=== PATIENT | female | born 1990 | race Hispanic/Latino ===

== ENCOUNTER 2017-08-23 23:00 | Emergency (ER) | payer BC ==
[2017-08-23] MEDS ORDERED: Lidocaine Viscous Sol 2% 15 ml UD Cup ONE (23:18)
[2017-08-23] MEDS ORDERED: Mag-Al 1200 mg/1200 mg/30 ML UDCUP ONE (23:19)
[2017-08-23] MEDS ORDERED: Pantoprazole 40 MG VIAL ONE (23:19)
[2017-08-23 23:21] LABS: #Eosinphils 0.3 thou/uL (0.0-0.7); #Lymphocytes 1.6 thou/uL (1.20-3.40); #Monocytes 0.5 thou/uL (0.11-0.59); #Neutrophils 5.8 thou/uL (1.40-6.50); %Basophils 0.1 % (0.0-1.0); %Eosinophils 3.9 % (0.0-10.0); %Lymphocytes 19.3 % (21.0-51.0); %Monocytes 6.2 % (0.0-10.0); %Neutrophils 70.6 % (42.0-75.0); Mean Corpuscular HGB CONC 35.6 g/dL (32.0-36.0); Mean Corpuscular Hemoglobin 29.2 pg (27.0-31.0); Mean Corpuscular Volume 81.8 fl (81.0-99.0); Mean Platelet Volume 6.1 fL (7.4-10.4); Platelet Count 269 thou/uL (130-400); RBC Distribution Width 15.3 % (11.5-14.5); Red Blood Cell (RBC) Count 4.46 mill/uL (4.20-5.40); White Blood Cell (WBC) Count 8.2 thou/uL (4.8-10.8)
[2017-08-23 23:28] LABS: Bilirubin Negative (Negative); Blood, Urine Negative (Negative); Clarity CLOUDY (Clear); Glucose, Urine (Dipstick) Negative (Negative); Leukocyte Moderate (Negative); Nitrite Negative (Negative); Protein, Urine (Dipstick) Negative (Neg-Trace); Specific Gravity, Urine 1.012 (1.002-1.036); Urobilinogen 0.2 mg/dL (0.2-1.0); pH, Urine 5.5 (5.0-9.0)
[2017-08-23 23:30] LABS: Bacteria/HPF 1+ HPF (None Seen); Hyaline Casts/LPF 0-3 HYALINE CAST LPF (0-3 Hyaline); Pathc Cast-AUWi Flag 0.72 (0-2.49); RBC/HPF 0-3 HPF (0-3)
[2017-08-23 23:44] LABS: ALT (SGPT) 16 U/L (8-55); AST (SGOT) 17 U/L (5-34); Albumin 4.1 g/dL (3.5-5.0); Alkaline Phosphatase 86 U/L (40-150); Anion Gap 13 mmol/L (10-20); BUN (Urea Nitrogen) 18 mg/dL (7.0-18.7); Bilirubin, Total 0.3 mg/dL (0.2-1.2); Calc. Creatinine Clearance 0 mL/min (70-130); Calcium 9.4 mg/dL (7.8-10.44); Carbon Dioxide 23 mmol/L (22-29); Chloride 104 mmol/L (98-107); Estimated GFR-MDRD 88; Globulin 3.2 g/dL (2.4-3.5); Glucose 98 mg/dL (70-105); Lipase 20 U/L (8-78); Potassium 3.7 mmol/L (3.5-5.1); Protein, Total 7.3 g/dL (6.0-8.3); Sodium 136 mmol/L (136-145)
== END 2017-08-24 00:41 | disposition home or self-care (01) ==
LOC: ERS 23:00
DX: O23.11 Infections of bladder in pregnancy, first trimester (principal); Z3A.00 Weeks of gestation of pregnancy not specified
CPT/HCPCS: 80053; 81003; 81015; 83690; 85025; 87077; 87086; 87186; 96361; 96374; C9113

== ENCOUNTER 2018-01-14 05:03 | Emergency (ER) | payer BC, OTHER, SELFPAY ==
[2018-01-14] MEDS ORDERED: diphenhydrAMINE 25 MG CAP ONE (06:34)
[2018-01-14 06:57] LABS: #Eosinphils 0.2 thou/uL (0.0-0.7); #Lymphocytes 1.6 thou/uL (1.20-3.40); #Monocytes 0.6 thou/uL (0.11-0.59); #Neutrophils 5.9 thou/uL (1.40-6.50); %Eosinophils 1.9 % (0.0-10.0); %Lymphocytes 19.1 % (21.0-51.0); %Monocytes 6.9 % (0.0-10.0); %Neutrophils 72.1 % (42.0-75.0); Hemoglobin 11.1 g/dL (12.0-16.0); Mean Corpuscular HGB CONC 35.8 g/dL (32.0-36.0); Mean Corpuscular Hemoglobin 31.6 pg (27.0-31.0); Mean Corpuscular Volume 88.2 fL (78.0-98.0); Mean Platelet Volume 5.8 fL (7.4-10.4); Platelet Count 236 thou/uL (130-400); RBC Distribution Width 14.4 % (11.5-14.5); Red Blood Cell (RBC) Count 3.52 mill/uL (4.20-5.40); White Blood Cell (WBC) Count 8.2 thou/uL (4.8-10.8)
[2018-01-14 07:22] LABS: ALT (SGPT) 13 U/L (8-55); AST (SGOT) 18 U/L (5-34); Albumin 3.2 g/dL (3.5-5.0); Alkaline Phosphatase 150 U/L (40-150); Anion Gap 10 mmol/L (10-20); BUN (Urea Nitrogen) 6 mg/dL (7.0-18.7); Bilirubin, Total 0.3 mg/dL (0.2-1.2); Calc. Creatinine Clearance 0 mL/min (70-130); Calcium 8.8 mg/dL (7.8-10.44); Carbon Dioxide 21 mmol/L (22-29); Chloride 108 mmol/L (98-107); Estimated GFR-MDRD Greater than 90; Glucose 85 mg/dL (70-105); Potassium 3.6 mmol/L (3.5-5.1); Protein, Total 6.2 g/dL (6.0-8.3); Sodium 135 mmol/L (136-145)
== END 2018-01-14 08:21 | disposition home or self-care (01) ==
LOC: ERS 05:03
DX: O99.713 Diseases of the skin and subcutaneous tissue complicating pregnancy, third trimester (principal); L03.114 Cellulitis of left upper limb; L29.9 Pruritus, unspecified; Z3A.30 30 weeks gestation of pregnancy
CPT/HCPCS: 36415; 80053; 85025

== ENCOUNTER 2018-01-22 11:34 | Day surgery (SDC) | payer OTHER ==
[2018-01-22 12:04] VITALS: BMI 34.0
[2018-01-22 12:22] VITALS: BP 107/63; TEMP 100
--- NOTE | 2018-01-22 12:48 | PDOC.LDHP ---
Labor and Delivery H&P Chief complaint: decreased movement HPI: 27 y/o at 33w0d, patient of Dr. Murrell, presents with decreased FM since yesterday afternoon. Patient is also feeling bad with a headache and malaise. Denies VB, LOF, ctx or other concerns. ROS neg for HEENT, CV, pulm, GI, , neuro, psych, skin, musculoskeletal, or constitutional symptoms other than mentioned above. OB History Details: 1 prior term Current complications: none Past Medical History: None Current medications: pre- vitamins Previous surgical history: none Allergies/Adverse Reactions: Allergies Allergy/AdvReac Type Severity Reaction Status Date / Time No Known Allergies Allergy Verified 01/22/18 12:24 Social history: none - Physical Exam Vital signs reviewed and normal: yes General: NAD, resting Lungs: nonlabored breathing Abdomen: gravid Extremeties: no edema FHT: category 1 (130s, mod variability, + accels, no decels) [place] contractions every: irregular - Assessment 27 y/o at 33w0d with likely viral syndrome but feeling better. status reassuring with reactive NST. - Plan -: D/c home with precautions. Given Tylenol 1g PO for MEJIA. Instructed to call Dr. Murrell with worsening symptoms.
[2018-01-22] MEDS: Acetaminophen 500 MG TAB PO SCH (12:56)
== END 2018-01-22 13:21 | disposition home or self-care (01) ==
LOC: L&D/OP 11:34
PROVIDERS: ATTEND Family Medicine
DX: O36.8130 Decreased fetal movements, third trimester, not applicable or unspecified (principal); Z3A.33 33 weeks gestation of pregnancy
CPT/HCPCS: 99282

== ENCOUNTER 2018-03-04 22:10 | Inpatient (IN) | payer MEDICAID, OTHER, SELFPAY ==
[2018-03-04] MEDS ORDERED: Acetaminophen 500 MG TAB PO PRN (23:39)
[2018-03-05] MEDS ORDERED: Lidocaine 1% (PF) 30 ML VIAL SC PRN (01:07)
[2018-03-05] MEDS ORDERED: Zolpidem Tartrate 5 MG TAB PO PRN (01:07)
[2018-03-05] MEDS ORDERED: Ibuprofen 800 MG TAB PO PRN (01:07)
[2018-03-05] MEDS ORDERED: NS / Oxytocin 40 units/1000ml 1,000 ML IV PRN (01:07)
[2018-03-05] MEDS ORDERED: Promethazine HCl 25 MG/ML VIAL IM PRN ×3 (01:07→19:59)
[2018-03-05] MEDS ORDERED: HYDROcodone/Acetaminophen 5/325 mg Tablet PO PRN ×3 (01:07→19:59)
[2018-03-05] MEDS ORDERED: Ondansetron PF 4 MG/2 ML Vial IVP PRN ×3 (01:07→19:59)
[2018-03-05] MEDS ORDERED: Lactated Ringer's 1,000 ML IV SCH (01:15)
[2018-03-05] MEDS: Lactated Ringer's 1,000 ML IV SCH ×2 (01:29→11:58)
[2018-03-05] MEDS: Butorphanol Tartrate 1 MG/ML VIAL SLOW IVP PRN ×4 (01:29→08:43)
[2018-03-05 01:32] LABS: Hemoglobin 12.3 g/dL (12.0-16.0); Mean Corpuscular HGB CONC 34.5 g/dL (32.0-36.0); Mean Corpuscular Hemoglobin 30.5 pg (27.0-31.0); Mean Corpuscular Volume 88.4 fL (78.0-98.0); Mean Platelet Volume 6.8 fL (7.4-10.4); Platelet Count 250 thou/uL (130-400); RBC Distribution Width 14.6 % (11.5-14.5); Red Blood Cell (RBC) Count 4.05 mill/uL (4.20-5.40)
[2018-03-05 02:04] LABS: HBSAg Index 0.31 S/CO (0-0.99); Hep B Surf Ag Non-Reactive S/CO (NonReactive); Syphilis Antibody Nonreactive (Nonreactive); Syphilis Antibody Index 0.04 S/CO (<1.00 Non-Reactive)
[2018-03-05] MEDS ORDERED: NS w/ Oxytocin 10 units 500 ML IV SCH (08:30)
[2018-03-05] MEDS ORDERED: Fentanyl 4 mcg/Bup 0.1% Cadd 100 ML ONE (10:53)
[2018-03-05] MEDS ORDERED: ePHEDrine/0.9% NaCl/PF SYRINGE 50 mg/10 ml SLOW IVP PRN (11:55)
[2018-03-05] MEDS ORDERED: Lactated Ringer's 500 ML IV PRN (11:55)
[2018-03-05] MEDS ORDERED: diphenhydrAMINE 50 MG/ML VIAL IVP PRN (11:55)
[2018-03-05] MEDS ORDERED: Eucerin (Mineral Oil/Petrolatum,White) 30 gm Jar TOP PRN (11:55)
[2018-03-05] MEDS ORDERED: Naloxone HCl 0.4 mg/ml Vial IVP PRN ×2 (11:55)
[2018-03-05] MEDS ORDERED: Acetaminophen 325 MG TAB PO PRN (11:55)
[2018-03-05] MEDS ORDERED: Communication Order-Pharmacy FS SCH (12:00)
[2018-03-05] MEDS ORDERED: Fentanyl 4 mcg/Bupivacaine 0.1% Cassette 100 ML EPIDURAL SCH (12:00)
[2018-03-05 19:41] VITALS: BMI 33.5
[2018-03-05] MEDS ORDERED: Misoprostol 200 MCG TAB ONE (19:50)
[2018-03-05] MEDS ORDERED: Carboprost 250 MCG/ML AMP ONE (19:51)
[2018-03-05] MEDS ORDERED: NS / Oxytocin 40 units/1000ml 1,000 ML ONE (19:51)
[2018-03-05] MEDS ORDERED: Methylergonovine 0.2 MG/ML VIAL ONE (19:51)
[2018-03-05] MEDS ORDERED: Preparation H Ointment 28 GM TUBE PR PRN (19:59)
[2018-03-05] MEDS ORDERED: Lanolin Ointment 7 GM TUBE TOP PRN (19:59)
[2018-03-05] MEDS ORDERED: Milk Of Magnesia 30 ML UDCUP PO PRN (19:59)
[2018-03-05] MEDS ORDERED: Varicella virus, LIVE 0.5 ML VIAL SC ONE (19:59)
[2018-03-05] MEDS ORDERED: diphenhydrAMINE 25 MG CAP PO PRN (19:59)
[2018-03-05] MEDS ORDERED: Methylergonovine 0.2 MG/ML VIAL IM PRN (19:59)
[2018-03-05] MEDS ORDERED: Measles/Mumps/Rubella 10 MCG/0.5 ML VIAL SC ONE (19:59)
[2018-03-05] MEDS ORDERED: Bisacodyl 10 MG SUPP PR PRN (19:59)
[2018-03-05] MEDS ORDERED: Benzocaine/Menthol 20-0.5% 60 ML CAN TOP PRN (19:59)
[2018-03-05] MEDS ORDERED: Misoprostol 200 MCG TAB VAG PRN (19:59)
[2018-03-05] MEDS ORDERED: Adacel (T-DAP) 0.5 ML VIAL IM ONE (19:59)
[2018-03-05] MEDS ORDERED: NS / Oxytocin 40 units/1000ml 1,000 ML IV SCH (20:00)
[2018-03-05] MEDS ORDERED: Ampicillin 2 GM in Sodium Chloride 0.9% 100 ML IVPB SCH (20:00)
--- NOTE | 2018-03-05 20:01 | PDOC.OPDEL ---
OB Operative/Delivery Note Delivery Dr/Surgeon: Tejal Pre-Delivery Diagnosis: active labor Procedure/Post Delivery Dx: spontaneous vaginal delivery Weeks gestation: 39 Anesthesia: epidural - Findings A Sex: male - 1 min: 8 - 5 min: 9 - Additional Findings/Plan Placenta delivered: spontaneous Repaired Obstetrical Laceration: 1st degree Estimated blood loss: QBL 695ml Compilations/Other Findings: Uterine atony after delivery of placenta improved with massage. Given 800mcg cytotec. Chorioamnionitis at time of delivery - will get Amp/Gent. Post delivery plan: routine recovery
[2018-03-05] MEDS: Ibuprofen 800 MG TAB PO SCH (20:44)
[2018-03-05] MEDS: Gentamicin Sulfate 330 MG in Sodium Chloride 0.9% 100 ML IVPB SCH (21:14)
[2018-03-05] MEDS ORDERED: Gentamicin 20 MG/2 ML PF (Neonates) IVPB SCH (22:00)
[2018-03-06] MEDS: Docusate Calcium (SURFAK) 240 MG CAP PO SCH ×3 (00:16→20:41)
[2018-03-06] MEDS: HYDROcodone/Acetaminophen 5/325 mg Tablet PO PRN (00:17)
[2018-03-06] MEDS: Ibuprofen 800 MG TAB PO SCH ×3 (06:48→22:35)
[2018-03-06] MEDS: Lactated Ringer's 1,000 ML IV SCH (07:37)
[2018-03-06 08:13] LABS: Hemoglobin 9.7 g/dL (12.0-16.0); Mean Corpuscular HGB CONC 33.6 g/dL (32.0-36.0); Mean Corpuscular Hemoglobin 30.6 pg (27.0-31.0); Mean Corpuscular Volume 91.2 fL (78.0-98.0); Mean Platelet Volume 6.8 fL (7.4-10.4); Platelet Count 188 thou/uL (130-400); RBC Distribution Width 14.7 % (11.5-14.5); Red Blood Cell (RBC) Count 3.17 mill/uL (4.20-5.40); White Blood Cell (WBC) Count 9.6 thou/uL (4.8-10.8)
[2018-03-06] MEDS: Prenatal Vitamin 1 TAB PO SCH (09:30)
[2018-03-06] MEDS: Ferrous Sulfate 325 MG TAB PO SCH ×2 (09:30→17:35)
[2018-03-06] MEDS: Gentamicin Sulfate 330 MG in Sodium Chloride 0.9% 100 ML IVPB SCH (21:24)
[2018-03-07] MEDS: Ibuprofen 800 MG TAB PO SCH ×2 (05:46→14:24)
[2018-03-07 07:58] VITALS: BP 111/57; TEMP 97.7
[2018-03-07] MEDS: HYDROcodone/Acetaminophen 5/325 mg Tablet PO PRN (08:11)
[2018-03-07] MEDS: Docusate Calcium (SURFAK) 240 MG CAP PO SCH (08:11)
[2018-03-07] MEDS: Ferrous Sulfate 325 MG TAB PO SCH (08:12)
[2018-03-07] MEDS: Prenatal Vitamin 1 TAB PO SCH (08:12)
[2018-03-08] MEDS ORDERED: Bupivacaine/Epinephrine 0.25% 30 ML VIAL ONE (10:10)
== END 2018-03-07 17:55 | disposition home or self-care (01) | DRG 807 ==
LOC: L&D/OP 22:10 → L&D 03-05 01:28 → 3SE 03-05 22:55
PROVIDERS: ADMIT Family Medicine; ATTEND Family Medicine
PROC: 10E0XZZ Delivery of Products of Conception, External Approach (ICD-10-PCS; principal; 2018-03-05)
PROC: 0HQ9XZZ Repair Perineum Skin, External Approach (ICD-10-PCS; 2018-03-05)
PROC: 10907ZC Drainage of Amniotic Fluid, Therapeutic from Products of Conception, Via Natural or Artificial Opening (ICD-10-PCS; 2018-03-05)
DX: O41.1230 Chorioamnionitis, third trimester, not applicable or unspecified (principal); Z37.0 Single live birth; Z3A.39 39 weeks gestation of pregnancy; O70.0 First degree perineal laceration during delivery; O69.81X0 Labor and delivery complicated by cord around neck, without compression, not applicable or unspecified
CPT/HCPCS: 36415; 51701; 85027; 86780; 86850; 86900; 86901; 87340; 90707; 90715; 90716; 99285; J0595; J1580; J2001; J2210; J3490; J7050

== ENCOUNTER 2018-12-28 10:07 | Emergency (ER) | payer MEDICAID, SELFPAY ==
[2018-12-28] MEDS ORDERED: ISOVUE-370 76%-LOCM 1 ML ONE (10:24)
[2018-12-28] MEDS ORDERED: Proparacaine 0.5% Opth 15 ML BOT ONE (11:20)
[2018-12-28] MEDS ORDERED: Fluorescein Opthalmic Strip ONE (11:20)
[2018-12-28 12:18] LABS: #Eosinphils 0.2 thou/uL (0.0-0.7); #Lymphocytes 1.7 thou/uL (1.20-3.40); #Monocytes 0.4 thou/uL (0.11-0.59); %Basophils 0.1 % (0.0-1.0); %Eosinophils 2.6 % (0.0-10.0); %Lymphocytes 23.5 % (21.0-51.0); %Monocytes 5.3 % (0.0-10.0); %Neutrophils 68.6 % (42.0-75.0); Hemoglobin 13.2 g/dL (12.0-16.0); Mean Corpuscular HGB CONC 35.3 g/dL (32.0-36.0); Mean Corpuscular Hemoglobin 29.3 pg (27.0-31.0); Mean Platelet Volume 6.1 fL (7.4-10.4); Platelet Count 310 thou/uL (130-400); RBC Distribution Width 13.4 % (11.5-14.5); White Blood Cell (WBC) Count 7.3 thou/uL (4.8-10.8)
[2018-12-28 12:34] LABS: BHCG - Serum Negative (NEGATIVE); Pregs Control Background? CLEAR/WHITE (CLR/WHITE); Pregs Control Bar Appear? YES (CONTROL BAR)
[2018-12-28 12:40] LABS: ALT (SGPT) 31 U/L (8-55); AST (SGOT) 28 U/L (5-34); Albumin 4.6 g/dL (3.5-5.0); Alkaline Phosphatase 120 U/L (40-150); Anion Gap 11 mmol/L (10-20); BUN (Urea Nitrogen) 12 mg/dL (7.0-18.7); Bilirubin, Total 0.5 mg/dL (0.2-1.2); Calc. Creatinine Clearance 0 mL/min (70-130); Calcium 9.3 mg/dL (7.8-10.44); Carbon Dioxide 27 mmol/L (22-29); Chloride 103 mmol/L (98-107); Estimated GFR-MDRD 85; Globulin 3.1 g/dL (2.4-3.5); Glucose 98 mg/dL (70-105); Potassium 3.9 mmol/L (3.5-5.1); Protein, Total 7.7 g/dL (6.0-8.3); Sodium 137 mmol/L (136-145)
[2018-12-28] MEDS ORDERED: HYDROcodone/Acetaminophen 10/325 mg Tablet ONE (13:15)
--- NOTE | 2018-12-28 13:27 | CT ---
CT ORBITS WITH CONTRAST: INDICATIONS: Swelling and pain to right eye. FINDINGS: No significant soft tissue swelling over the right eye on soft tissue windows. The globes appear unr emarkable. The retroorbital regions are unremarkable. There is no evidence of a post septal process . The paranasal sinuses and mastoids are well aerated and clear. The osseous structures are unremarkab le. IMPRESSION: Unremarkable CT orbits. POS: SANDRA
== END 2018-12-28 13:43 | disposition home or self-care (01) ==
LOC: ERS 10:07
DX: H57.11 Ocular pain, right eye (principal)
CPT/HCPCS: 36415; 70481; 80053; 84703; 85025; Q9966

== ENCOUNTER 2019-08-18 12:45 | Emergency (ER) | payer BC, SELFPAY ==
[2019-08-18] MEDS ORDERED: Dexamethasone 10 MG/ML VIAL ONE (13:07)
[2019-08-18] MEDS ORDERED: Ketorolac Tromethamine 30 MG/ML VIAL ONE (13:07)
[2019-08-18] MEDS ORDERED: Metoclopramide HCl 10 MG/2 ML VIAL ONE (13:07)
[2019-08-18 13:21] LABS: #Eosinphils 0.1 thou/uL (0.0-0.7); #Lymphocytes 1.1 thou/uL (1.20-3.40); #Monocytes 0.2 thou/uL (0.11-0.59); #Neutrophils 4.7 thou/uL (1.40-6.50); %Basophils 0.4 % (0.0-1.0); %Lymphocytes 17.6 % (21.0-51.0); %Monocytes 3.4 % (0.0-10.0); %Neutrophils 77.6 % (42.0-75.0); Hemoglobin 9.8 g/dL (12.0-16.0); Mean Corpuscular HGB CONC 30.9 g/dL (32.0-36.0); Platelet Count 362 thou/uL (130-400); RBC Distribution Width 18.5 % (11.5-14.5); Red Blood Cell (RBC) Count 4.67 mill/uL (4.20-5.40); White Blood Cell (WBC) Count 6.1 thou/uL (4.8-10.8)
[2019-08-18 13:40] LABS: Anisocytosis SLIGHT = 6-15 cells (100X) (0-5/hpf); Elliptocytes SLIGHT = 2-5 cells (100X) (0-1/hpf); Hypochromia SLIGHT = 6-15 cells (100X) (0-5/hpf); MDiff Complete? YES; Microcytosis SLIGHT = 6-15 cells (100X) (0-5/hpf); Ovalocytes SLIGHT = 2-5 cells (100X) (0-1/hpf); Platelet Morphology Comment Appears Adequate; Polychromasia SLIGHT = 2-3 cells (100X) (0-2/hpf)
[2019-08-18 13:45] LABS: ALT (SGPT) 26 U/L (8-55); AST (SGOT) 23 U/L (5-34); Albumin 4.7 g/dL (3.5-5.0); Alkaline Phosphatase 106 U/L (40-110); Anion Gap 11 mmol/L (10-20); BUN (Urea Nitrogen) 13 mg/dL (7.0-18.7); Bilirubin, Total 0.4 mg/dL (0.2-1.2); Calc. Creatinine Clearance 0 mL/min (70-130); Calcium 9.4 mg/dL (7.8-10.44); Carbon Dioxide 24 mmol/L (22-29); Chloride 104 mmol/L (98-107); Estimated GFR-MDRD 80; Globulin 3.4 g/dL (2.4-3.5); Glucose 102 mg/dL (70-105); Potassium 3.4 mmol/L (3.5-5.1); Protein, Total 8.1 g/dL (6.0-8.3); Sodium 136 mmol/L (136-145)
== END 2019-08-18 14:14 | disposition home or self-care (01) ==
LOC: ERS 12:45
DX: G43.909 Migraine, unspecified, not intractable, without status migrainosus (principal)
CPT/HCPCS: 80053; 85025; 96374; 96375; J1100; J1885; J2765

== ENCOUNTER 2023-10-08 09:35 | Emergency (ER) | payer SELFPAY ==
[2023-10-08 10:34] LABS: #Basophils Less than 0.03 10x3/uL (0.0-0.2); #Eosinphils Less than 0.03 10x3/uL (0.0-0.7); %Basophils 0.1 % (0.0-1.0); %Eosinophils 0.1 % (0.0-10.0); %Lymphocytes 11.6 % (21.0-51.0); %Neutrophils 80.9 % (42.0-75.0); Hematocrit 34.8 % (36.0-47.0); Hemoglobin 11.1 g/dL (12.0-16.0); Mean Corpuscular HGB CONC 31.9 g/dL (32.0-36.0); Mean Corpuscular Hemoglobin 24.7 pg (27.0-31.0); Mean Corpuscular Volume 77.3 fL (78.0-98.0); Mean Platelet Volume 8.3 fL (7.4-10.4); Platelet Count 355 10x3/uL (130-400); RBC Distribution Width 15.6 % (11.5-14.5)
[2023-10-08 10:48] LABS: ALT (SGPT) 10 U/L (8-55); AST (SGOT) 14 U/L (5-34); Albumin 3.5 g/dL (3.5-5.0); Alkaline Phosphatase 121 U/L (40-110); Anion Gap 13 mmol/L (10-20); BUN (Urea Nitrogen) 9 mg/dL (7.0-18.7); Bilirubin, Total 0.6 mg/dL (0.2-1.2); Calc. Creatinine Clearance 0 mL/min (70-130); Calcium 9.3 mg/dL (7.8-10.44); Carbon Dioxide 22 mmol/L (22-29); Chloride 106 mmol/L (98-107); Estimated GFR 92; Globulin 4.2 g/dL (2.4-3.5); Glucose 109 mg/dL (70-105); Lipase 19 U/L (8-78); Potassium 3.6 mmol/L (3.5-5.1); Protein, Total 7.7 g/dL (6.0-8.3); Sodium 137 mmol/L (136-145)
[2023-10-08] MEDS ORDERED: Magnesium Citrate 300 ML BOT ONE (11:52)
[2023-10-08] MEDS ORDERED: Ketorolac Tromethamine 30 MG (1 mL) VIAL ONE (11:52)
[2023-10-08 14:02] LABS: Bacteria/HPF 4+ HPF (None Seen); Bilirubin Negative (Negative); Blood, Urine 1+ (Negative); CAUTI Indications for Culture Pelvic or flank pain; Clarity Extra Turbid (Clear); Glucose, Urine (Dipstick) Normal (Negative); Ketone, Urine Trace mg/dL (Negative); Leukocyte 500 Leu/uL (Negative); Mucous/LPF Rare LPF (<2+); Nitrite 1+ (Negative); Protein, Urine (Dipstick) 50 mg/dL (Neg-Trace); Specific Gravity, Urine 1.019 (1.002-1.036); Urobilinogen Normal mg/dL (Less than 2); WBC/HPF Greater than 50 HPF (0-3); pH, Urine 5.5 (5.0-9.0)
[2023-10-08 14:05] LABS: Pregnancy Test - Urine (BHCG) Negative (Negative); Pregu Control Background? CLEAR/WHITE (CLR/WHITE); Pregu Control Bar Appear? YES (CONTROL BAR); Specific Gravity 1.019 (1.002-1.036); Urine Culture Reflex Yes Yes
== END 2023-10-08 15:22 | disposition home or self-care (01) ==
LOC: ERS 09:35
DX: K59.00 Constipation, unspecified (principal); N39.0 Urinary tract infection, site not specified
CPT/HCPCS: 36415; 74176; 80053; 81025; 83690; 85025; 93005; 96372; J1885

== ENCOUNTER 2024-03-18 14:13 | Outpatient (CLI) | payer OTHER, SELFPAY | END 2024-03-18 14:14 | disposition home or self-care (01) | LOC: BICULT 14:13 | PROVIDERS: ATTEND Family Medicine | DX: R22.41 Localized swelling, mass and lump, right lower limb (principal) | CPT/HCPCS: 76999 ==